=== PATIENT | female | born 1980 | race Caucasian/White ===

== ENCOUNTER 2017-02-02 11:47 | Outpatient (CLI) | payer OTHER ==
[~2017-02-02] VITALS: Ht 157.5 cm; Wt 57.8 kg
[2017-02-02] MEDS ORDERED: PRENAT PO (12:13)
[2017-02-02] MEDS ORDERED: CITRACAL PO (12:14)
[2017-02-02] MEDS ORDERED: FERR325C PO (12:14)
[2017-02-02] MEDS ORDERED: SYN75 PO (12:15)
[2017-02-02] MEDS ORDERED: RANI150T9 PO (12:18)
[2017-02-02 12:21] VITALS: Ht 157.5 cm; Wt 57.8 kg
[2017-02-02 12:22] VITALS: BP 109/60; PULSE 103; RESP 18
--- NOTE | 2017-02-02 13:21 | TRIAGE ---
OB Triage Datetime Report Generated by CPN: 02/02/2017 13:20 Datetime: 02/02/2017 12:33 Assessment Type: Admission Assessment Maternal Assessment Level of Consciousness: Fully Conscious DTR's/Clonus: DTRs 2+; No Clonus Headache: Denies Blurred Vision: No Respiratory Effort: Unlabored; Regular Rhythm; Equal Expansion Breath Sounds, Left: Clear and Equal Breath Sounds, Right: Clear and Equal Nausea/Vomiting: Denies RUQ Epigastric Pain: Denies Lower Extremities Edema: None Degree: None Upper Extremities Edema: None Degree: None Facial Edema: None Fall Risk Assessment History of Falling: (0) No Secondary Diagnosis: (0) No Ambulatory Aid: (0) Bedrest/Nurse Assist IV Therapy: (0) No Gait: (0) Normal/Bedrest/Immobile Mental Status: (0) Oriented to Own Ability Fall Score: 0 Fall Risk Score Definition: No Risk: No action required Datetime: 02/02/2017 12:32 EGA: 19.0 Time Provider Notified: 02/02/2017 13:00 Provider Notified: DR XAVIER Datetime: 02/02/2017 12:30 Labor Evaluation Frequency: 0 Pattern: Normal: <= 5 Contractions in 10 Minutes Resting Tone [place]: Relaxed Contraction Comments: NONE NOTED Datetime: 02/02/2017 12:28 Time of Arrival: 02/02/2017 11:30 Arrived By: Ambulatory Arrived From: Home Chief Complaint: HEADACHE, COUGH Movement: Present Contractions: Denies/Absent Rupture of Membranes: Denies Vaginal Bleeding: None Vaginal Discharge: Denies Recent Sexual Intercouse: Denies Abdominal Trauma: Not Applicable Patient Complaints: Other Time Provider Notified: 02/02/2017 13:00 Provider Notified: DR XAVIER Initial Plan: NST
== END 2017-02-02 13:41 | disposition home or self-care (01) ==
LOC: OBT 11:47 → L-D 11:47 → OBT 13:41
PROVIDERS: ATTEND Obstetrics & Gynecology
DX: O60.02 Preterm labor without delivery, second trimester (principal); O09.512 Supervision of elderly primigravida, second trimester; Z3A.19 19 weeks gestation of pregnancy
CPT/HCPCS: G0463

== ENCOUNTER 2017-06-23 09:26 | Inpatient (IN) | payer OTHER ==
[~2017-06-23] VITALS: Ht 160 cm; Wt 66.7 kg
[2017-06-23] VITALS (10 sets, daily range): BP systolic 97–116; BP diastolic 52–69; PULSE 75–104; RESP 17–19; Ht 160 cm; Wt 66.7 kg
[~2017-06-23 09:26] MED LIST: CITRACAL PO; DEXAMETHASONE 4 MG/ML 1 ML INJ ONE; FERR325C PO; PRENAT PO; RANI150T9 PO; SYN75 PO
[2017-06-23] MEDS: LACTATED RINGER'S 1,000 ML IV SCH ×2 (10:19→12:33)
[2017-06-23 10:26] LABS: BASOPHILS % 0.3 % (0.0-2.0); EOSINOPHILS # 0.1 10^3/ul (0.0-0.5); EOSINOPHILS % 1.9 % (0.0-7.0); HEMATOCRIT 36.1 % (37.0-47.0); HEMOGLOBIN 12.3 g/dl (12.0-16.0); LYMPHOCYTES # 1.3 10^3/ul (0.8-2.9); MEAN CORPUSCULAR HEMOGLOBIN 30.5 pg (29.0-33.0); MEAN CORPUSCULAR HGB CONC 34.1 g/dl (32.0-37.0); MEAN CORPUSCULAR VOLUME 89.6 fl (82.0-101.0); MEAN PLATELET VOLUME 11.9 fl (7.4-10.4); MONOCYTE # 0.5 10^3/ul (0.3-0.9); MONOCYTES % 6.5 % (0.0-11.0); NEUTROPHIL # 5.6 10^3/ul (1.6-7.5); NEUTROPHILS % 73.8 % (39.0-77.0); PLATELET COUNT 215 10^3/UL (140-415); RED BLOOD COUNT 4.03 10^6/ul (4.20-5.40); RED CELL DISTRIBUTION WIDTH 14.8 % (11.5-14.5); WHITE BLOOD COUNT 7.5 10^3/ul (4.8-10.8)
[2017-06-23] MEDS ORDERED: CEFAZOLIN 2 GM/50 ML (PMX) 50 ML IV SCH (10:30)
[2017-06-23] MEDS ORDERED: OXYTOCIN 30 UNITS/LR 500 ML IV PRN ×2 (10:30→19:00)
[2017-06-23] MEDS ORDERED: METHYLERGONOVINE 0.2 MG INJ IM PRN ×2 (10:30→19:00)
[2017-06-23] MEDS ORDERED: CARBOPROST 250 MCG INJ IM PRN ×2 (10:30→19:00)
[2017-06-23] MEDS ORDERED: OXYTOCIN 30 UNITS/LR 500 ML IV SCH (10:30)
[2017-06-23] MEDS ORDERED: MISOPROSTOL 200 MCG TAB PR PRN ×2 (10:30→19:00)
[2017-06-23 10:39] LABS: INR 0.89; PT RATIO 0.9
[2017-06-23] MEDS ORDERED: CITRIC ACID/NA CITRATE 30 ML CUP ONE (12:43)
[2017-06-23] MEDS ORDERED: OXYTOCIN 10 UNIT INJ ONE (12:52)
[2017-06-23] MEDS ORDERED: PHENYLephrine (100 MCG/ML) 5ML SYG ONE ×3 (12:52→13:36)
[2017-06-23] MEDS ORDERED: morphine SULFATE/PF (10 MG/10 ML) INJ ONE (12:52)
[2017-06-23] MEDS ORDERED: CITRIC ACID/NA CITRATE 30 ML CUP PO ONE (13:00)
[2017-06-23] MEDS ORDERED: METOCLOPRAMIDE 10 MG INJ ONE (13:09)
[2017-06-23] MEDS ORDERED: ONDANSETRON 4 MG INJ ONE (13:09)
[2017-06-23] MEDS ORDERED: DEXAMETHASONE 4 MG/ML 1 ML INJ ONE (13:10)
[2017-06-23] MEDS ORDERED: KETOROLAC 30 MG INJ ONE (13:10)
[2017-06-23] MEDS ORDERED: morphine 4 MG/ML VIAL IV PRN (14:00)
[2017-06-23] MEDS ORDERED: ACETAMINOPHEN 500 MG TAB PO PRN (14:00)
[2017-06-23] MEDS ORDERED: NALBUPHINE HCL (10 MG/1 ML) INJ IV PRN (14:00)
[2017-06-23] MEDS ORDERED: ONDANSETRON 4 MG INJ IV PRN (14:00)
[2017-06-23] MEDS ORDERED: HYDROmorphONE 1 MG/ML SYG IV PRN ×2 (14:00)
[2017-06-23] MEDS ORDERED: HYDROCODONE/APAP (5/325) TAB PO PRN ×3 (14:00→19:00)
[2017-06-23] MEDS ORDERED: morphine 2 MG INJ IV PRN (14:00)
[2017-06-23] MEDS ORDERED: NALOXONE (0.4 MG/ML) INJ IV PRN (14:00)
--- NOTE | 2017-06-23 14:08 | HP ---
Date/Time of Note Date/Time of Note DATE: 06/23/17 TIME: 13:58 OB - History Hx of Present Free Text/Dictation 37 years old white female 1 para 0 EDC June 29, 2017 admitted at 39 weeks and 1 day for elective primary requested by her possibly due to tocophobia She has been under the care of the [facility] and her was complicated with gestational diabetes diet-controlled hypothyroidism on Synthroid no other complication noted on patient records Chief Complaint: Elective section at 39 weeks and 1 day Estimated Due Date: Jun 29, 2017 : 1 Para: 0 Care: Good Care Ultrasounds: Normal mid trimester US Obstetrical Complications: Gestational Diabetes Medical Complications: Other (Hypothyroidism) Past Family/Social History * Past Medical, Surgical, Family and Obstetric Histories reviewed from chart. Rubella: immune RPR/VDRL: Negative GBS Status: Negative HBsAG: Negative OB Admission Exam Physical Exam HEENT: WNL Heart: Rhythm Normal Lungs: Clear, Equal Abdomen: WNL Extremities: Normal Reflexes: Normal Cervical Dilatation: None Heart Rate: 130's Accelerations: Accelerations Present Decelerations: No Decelerations Varibility: Moderate Contractions on Admission: None Last 72 hours Lab Results CBC & BMP 06/23/17 10:00 OB Assessment/Plan Reason for admission: other (37 years old white female 1 para 0 EDC June 29 admitted to the hospital with request for elective section possible due to tocophobia) Plan: Section JAZMIN XAVIER MD Jun 23, 2017 14:08
--- NOTE | 2017-06-23 14:17 | OPR ---
Operative Report Planned Procedure Free Text/Dictation 37 years white female 1 para 0 39 weeks request elective C- section delivery Procedure date Jun 23, 2017 Procedure(s) Primary Performed by: JAZMIN XAVIER MD Assisting provider: ANA GIVENS MD Anesthesiologist: WILEY FELIX MD Pre-procedure diagnosis 39 weeks request for elective primary section Anesthesia Type: spinal Procedure Description Under satisfactory spinal anesthesia, patient was prepped and draped and placed in a supine position, tilted to the left. Pfannenstiel incision was made , carried through the subcutaneous tissue. Bleeders brought under control with electrocautery. Fascia incised to the length of the incision. Rectus muscles from the fascia, divided midline. Peritoneum exposed, entered through a transverse incision. Exploration of abdomen revealed gravid uterus at term normal-appearing tubes and ovaries. Bladder flap was developed. Transverse incision was made in the lower segment of the uterus. Amniotic sac ruptured. [ Clear] amniotic fluid noted. Light baby girl was delivered from occiput transverse nasal oropharyngeal suction was performed. baby handed to the team for immediate attention. reported 8 and 9 patient received 20 units of Pitocin through IV infusion placenta delivered manually intact. Uterine cavity cleaned with wet sponge and drainage established. Uterus closed in 2 layers using [Monocryl #1] in continuous fashion. Peritoneal cavity irrigated with warm saline. Sponge, needle and instrument count reported to be correct. Abdominal peritoneum closed with [2-0 chromic catgut] continuously. Rectus muscle approximated with [few interrupted 2-0 chromic catgut. Fascia closed with [#1 PDS], subcutaneous tissue approximated with 3 interrupted 2-0 chromic catgut skin closed subcuticular 3-0 Monocryl. Estimated blood loss 600 mL. Urine bag contained 200 []mL of clear urine patient tolerated procedure well transferred to recovery room in good condition Post-Procedure Findings: Live baby girl 8 and 9 Specimen removed: No Complications: None Pt Condition post procedure: stable Disposition: other (Recovery room) Physician Certification I, the undersigned physician, hereby certify that I have discussed the procedure described in this consent form with this patient (or the patient's legal open claims representative), including: * The risk and benefits of the procedure; * Any adverse reactions that may reasonably be expected to occur; * Any alternative efficacious methods of treatment which may be medically viable ; * The potential problems that may occur during recuperation; * Potential for blood transfusion and associated risks/benefits; and * Any research or economic interest I may have regarding this treatment. I further certify that the patient/legally responsible person was encouraged to ask question and that all questions were answered. JAZMIN XAVIER MD Jun 23, 2017 14:17
[2017-06-23] MEDS: DIPHENHYDRAMINE 50 MG INJ IV PRN (16:15)
[2017-06-23] MEDS ORDERED: DIPHENHYDRAMINE 50 MG INJ IV PRN (17:30)
[2017-06-23] MEDS: OXYTOCIN 30 UNITS/LR 500 ML IV SCH ×2 (18:36→20:39)
[2017-06-23] MEDS ORDERED: LANOLIN 7 GM TUBE TOP PRN (19:00)
[2017-06-23] MEDS ORDERED: CEFAZOLIN 1 GM/50 ML (PMX) 50 ML IVPB SCH (19:00)
[2017-06-23] MEDS: SENNA/DOCUSATE NA (8.6MG/50MG) TAB PO SCH (20:39)
[2017-06-24 00:04] VITALS: BP 107/59; PULSE 86; RESP 18
[2017-06-24] MEDS: DIPHENHYDRAMINE 50 MG INJ IV PRN ×2 (01:07→13:29)
[2017-06-24] MEDS: KETOROLAC 30 MG INJ IV PRN ×3 (01:08→13:29)
[2017-06-24] MEDS: LACTATED RINGER'S 1,000 ML IV SCH ×2 (01:17→10:03)
--- NOTE | 2017-06-24 01:31 | OPPN ---
Date/Time of Note Date/Time of Note DATE: 06/24/17 TIME: 01:30 Post-Anesthesia Notes Post-Anesthesia Note Last documented vital signs Vital Signs Date Time Temp Pulse Resp B/P Pulse Ox O2 Delivery O2 Flow Rate FiO2 06/24/17 00:04 98.2 86 18 107/59 Room Air 06/23/17 16:30 96 Activity: WNL Respiratory function: WNL Cardiovascular function: WNL Mental status: Baseline Pain reasonably controlled: Yes Hydration appropriate: Yes Nausea/Vomiting absent: Yes WILEY FELIX MD Jun 24, 2017 01:30
[2017-06-24 04:00] VITALS: BP 89/52; PULSE 80; RESP 18
[2017-06-24] MEDS: LEVOTHYROXINE 75 MCG TAB PO SCH (05:34)
[2017-06-24] MEDS ORDERED: NALBUPHINE HCL (10 MG/1 ML) INJ IV PRN (06:00)
[2017-06-24 08:19] LABS: BASOPHILS % 0.3 % (0.0-2.0); EOSINOPHILS # 0.1 10^3/ul (0.0-0.5); EOSINOPHILS % 0.7 % (0.0-7.0); HEMATOCRIT 29.9 % (37.0-47.0); LYMPHOCYTES # 1.7 10^3/ul (0.8-2.9); LYMPHOCYTES % 15.8 % (15.0-51.0); MEAN CORPUSCULAR HEMOGLOBIN 30.4 pg (29.0-33.0); MEAN CORPUSCULAR HGB CONC 33.4 g/dl (32.0-37.0); MEAN CORPUSCULAR VOLUME 90.9 fl (82.0-101.0); MEAN PLATELET VOLUME 11.6 fl (7.4-10.4); MONOCYTE # 0.8 10^3/ul (0.3-0.9); MONOCYTES % 7.4 % (0.0-11.0); NEUTROPHILS % 75.4 % (39.0-77.0); PLATELET COUNT 172 10^3/UL (140-415); RED BLOOD COUNT 3.29 10^6/ul (4.20-5.40); RED CELL DISTRIBUTION WIDTH 14.8 % (11.5-14.5); WHITE BLOOD COUNT 10.6 10^3/ul (4.8-10.8)
[2017-06-24 08:30] VITALS: BP 99/58; PULSE 75; RESP 14
[2017-06-24] MEDS ORDERED: CELECOXIB 200 MG CAP PO SCH (09:00)
[2017-06-24] MEDS: SENNA/DOCUSATE NA (8.6MG/50MG) TAB PO SCH ×2 (10:03→23:59)
--- NOTE | 2017-06-24 12:20 | PN ---
Date/Time of Note Date/Time of Note DATE: 06/24/17 TIME: 12:19 OB Subjective Subjective Subjective Post day 1 Afebrile vital signs are stable Abdomen soft incision dry Bowel sounds present Lochia moderate Incision dry Ambulation recommended Laboratory Tests Test 06/24/17 07:58 White Blood Count 10.610^3/ul Red Blood Count 3.2910^6/ul Hemoglobin 10.0g/dl Hematocrit 29.9% Mean Corpuscular Volume 90.9fl Mean Corpuscular Hemoglobin 30.4pg Mean Corpuscular Hemoglobin Concent 33.4g/dl Red Cell Distribution Width 14.8% Platelet Count 90583^3/UL Mean Platelet Volume 11.6fl Neutrophils % 75.4% Lymphocytes % 15.8% Monocytes % 7.4% Eosinophils % 0.7% Basophils % 0.3% Nucleated Red Blood Cells % 0.0/100WBC Neutrophils # 8.010^3/ul Lymphocytes # 1.710^3/ul Monocytes # 0.810^3/ul Eosinophils # 0.110^3/ul Basophils # 0.010^3/ul Nucleated Red Blood Cells # 0.010^3/ul Current Medications Medications (Trade) Dose Ordered Sig/Mary Route PRN Reason Start Time Stop Time Status Last Admin Dose Admin Lactated Ringer's 1,000 ml @ 125 mls/hr Q8H IV 06/23/17 10:09 06/24/17 10:03 Cefazolin Sodium/ Dextrose 50 ml @ 100 mls/hr ONCE IV 06/23/17 10:30 06/23/17 18:41 DC Oxytocin/Lactated Ringer's 500 ml @ 125 mls/hr ONCE IV 06/23/17 10:30 06/23/17 18:41 DC 06/23/17 17:35 Oxytocin/Lactated Ringer's 500 ml @ 0 mls/hr ONCE PRN IV For Hemorrhage Management 06/23/17 10:30 06/23/17 18:41 DC Methylergonovine Maleate (Methergine) 0.2 mg ONCE PRN IM VAGINAL BLEEDING 06/23/17 10:30 06/23/17 18:41 DC Carboprost Tromethamine (Hemabate) 250 mcg ONCE PRN IM VAGINAL BLEEDING 06/23/17 10:30 06/23/17 18:41 DC Misoprostol (Cytotec) 1,000 mcg ONCE PRN CA VAGINAL BLEEDING 06/23/17 10:30 06/23/17 18:41 DC Citric Acid/ Sodium Citrate (Bicitra) 30 ml STK-MED ONCE .ROUTE 06/23/17 12:43 06/23/17 12:44 DC Citric Acid/ Sodium Citrate (Bicitra) 30 ml PRE-OP ONCE PO 06/23/17 13:00 06/23/17 13:01 DC 06/23/17 13:45 Morphine Sulfate (Duramorph) 10 mg STK-MED ONCE .ROUTE 06/23/17 12:52 06/23/17 12:53 DC Oxytocin (Oxytocin) 10 units STK-MED ONCE .ROUTE 06/23/17 12:52 06/23/17 12:53 DC Phenylephrine HCl (Charly-Synephrine Inj Syg) 500 mcg STK-MED ONCE .ROUTE 06/23/17 12:52 06/23/17 12:53 DC Ondansetron HCl (Zofran Inj) 4 mg STK-MED ONCE .ROUTE 06/23/17 13:09 06/23/17 13:10 DC Metoclopramide HCl (Reglan) 10 mg STK-MED ONCE .ROUTE 06/23/17 13:09 06/23/17 13:10 DC Ketorolac Tromethamine (Toradol) 30 mg STK-MED ONCE .ROUTE 06/23/17 13:10 06/23/17 13:11 DC Dexamethasone (Decadron) 4 mg STK-MED ONCE .ROUTE 06/23/17 13:10 06/23/17 13:11 DC Phenylephrine HCl (Charly-Synephrine Inj Syg) 500 mcg STK-MED ONCE .ROUTE 06/23/17 13:25 06/23/17 13:26 DC Phenylephrine HCl (Charly-Synephrine Inj Syg) 500 mcg STK-MED ONCE .ROUTE 06/23/17 13:36 06/23/17 13:37 DC Hydromorphone HCl (Dilaudid) 0.2 mg Q2H PRN IV PAIN LEVEL 1-5 06/23/17 14:00 06/23/17 18:41 DC Hydromorphone HCl (Dilaudid) 0.4 mg Q2H PRN IV PAIN LEVEL 6-10 06/23/17 14:00 06/23/17 18:41 DC Morphine Sulfate (morphine) 2 mg Q2H PRN IV PAIN LEVEL 1-5 06/23/17 14:00 Morphine Sulfate (morphine) 4 mg Q2H PRN IV PAIN LEVEL 6-10 06/23/17 14:00 Ketorolac Tromethamine (Toradol) 30 mg Q6H PRN IV PAIN LEVEL 6-10 06/23/17 14:00 06/26/17 13:59 06/24/17 07:18 Celecoxib (Celebrex) 200 mg DAILY PO 06/24/17 09:00 06/24/17 09:00 DC Acetaminophen (Tylenol Tab) 500 mg Q4H PRN PO PAIN LEVEL 1-3 06/23/17 14:00 06/23/17 18:41 DC Acetaminophen/ Hydrocodone Bitart ([place] (5/325)) 1 tab Q4H PRN PO PAIN LEVEL 4-6 06/23/17 14:00 06/23/17 18:41 DC Nalbuphine HCl (Nubain) 10 mg Q4H PRN IV PRURITUS 06/23/17 14:00 06/23/17 18:41 DC Ondansetron HCl (Zofran Inj) 4 mg Q6H PRN IV NAUSEA AND/OR VOMITING 06/23/17 14:00 Naloxone HCl (Narcan) 0.2 mg Q2M PRN IV FOR RESP RATE 8 OR LESS 06/23/17 14:00 Miscellaneous Information (* Miscellaneous Pharmacy Order) DURAMORPH: 0.2 MG SPI... GIVEN NEURAXIAL XX 06/23/17 14:00 06/23/17 18:41 DC Levothyroxine Sodium (Synthroid) 75 mcg DAILY@06 PO 06/24/17 06:00 06/24/17 05:34 Diphenhydramine HCl (Benadryl) 25 mg Q6H PRN IV ITCHING 06/23/17 16:30 06/24/17 01:07 Diphenhydramine HCl (Benadryl) 25 mg PACU ORDER PRN IV PRURITUS 06/23/17 17:30 06/23/17 18:41 DC Acetaminophen/ Hydrocodone Bitart ([place] (5/325)) 1 tab Q4H PRN PO PAIN LEVEL 4-6 06/23/17 19:00 Acetaminophen/ Hydrocodone Bitart ([place] (5/325)) 2 tab Q4H PRN PO PAIN LEVEL 7-10 06/23/17 19:00 Oxycodone/ Acetaminophen (Percocet (5/ 325)) 1 tab Q4H PRN PO PAIN LEVEL 4-6 06/23/17 19:00 Oxycodone/ Acetaminophen (Percocet (5/ 325)) 2 tab Q4H PRN PO PAIN LEVEL 7-10 06/23/17 19:00 Ibuprofen (Motrin) 600 mg Q6 PO 06/24/17 18:00 Simethicone (Mylicon) 160 mg Q8H PRN PO DISTENSION/GAS/BLOATING 06/23/17 19:00 Senna/Docusate Sodium (Senokot-S) 1 tab BID PO 06/23/17 21:00 06/24/17 10:03 Lanolin (Ewe-R-Ijrxad) 1 applic BEDSIDE MEDICATION PRN TOP BEDSIDE FOR AMAN TO NIPPLES 06/23/17 19:00 06/24/17 01:07 Diphtheria/ Tetanus/Acell Pertussis 0.5 ml 0.5 ml ONCE ONCE IM* 06/26/17 09:00 06/26/17 09:01 Oxytocin/Lactated Ringer's 500 ml @ 0 mls/hr ONCE PRN IV For Hemorrhage Management 06/23/17 19:00 Methylergonovine Maleate (Methergine) 0.2 mg ONCE PRN IM VAGINAL BLEEDING 06/23/17 19:00 Carboprost Tromethamine (Hemabate) 250 mcg ONCE PRN IM VAGINAL BLEEDING 06/23/17 19:00 Misoprostol 1000 mcg 1,000 mcg ONCE PRN CA VAGINAL BLEEDING 06/23/17 19:00 Cefazolin Sodium 50 ml @ 100 mls/hr ONCE IVPB 06/23/17 19:00 06/23/17 19:29 DC 06/23/17 20:39 Oxytocin/Lactated Ringer's 500 ml @ 125 mls/hr Q4H IV 06/23/17 18:36 06/23/17 20:39 Nalbuphine HCl (Nubain) 10 mg Q6H PRN IV PRURITUS 06/24/17 06:00 06/24/17 06:51 JAZMIN XAVIER MD Jun 24, 2017 12:20
[2017-06-24 12:45] VITALS: BP 106/61; PULSE 84; RESP 16
[2017-06-24 16:40] VITALS: BP 104/57; PULSE 80; RESP 16
[2017-06-24] MEDS: IBUPROFEN 600 MG TAB PO SCH ×2 (17:53→23:59)
[2017-06-24] MEDS: OXYCODONE/ACETAMINOPHEN (5/325) TAB PO PRN (18:49)
[2017-06-24 20:45] VITALS: BP 97/56; PULSE 110; RESP 18
[2017-06-25] MEDS: OXYCODONE/ACETAMINOPHEN (5/325) TAB PO PRN ×4 (00:01→21:14)
[2017-06-25 05:33] VITALS: BP 98/55; PULSE 85; RESP 19
[2017-06-25] MEDS: LEVOTHYROXINE 75 MCG TAB PO SCH (05:54)
[2017-06-25] MEDS: IBUPROFEN 600 MG TAB PO SCH ×4 (05:54→23:59)
[2017-06-25] MEDS: LACTATED RINGER'S 1,000 ML IV SCH (06:37)
[2017-06-25 07:30] VITALS: BP 102/52; PULSE 57; RESP 18
[2017-06-25] MEDS: SENNA/DOCUSATE NA (8.6MG/50MG) TAB PO SCH ×2 (09:09→21:13)
--- NOTE | 2017-06-25 10:58 | PN ---
Date/Time of Note Date/Time of Note DATE: 06/25/17 TIME: 10:57 OB Subjective Subjective Subjective Post day 2 Afebrile VSS Abdomen soft uterus firm incision dry bowel sounds present no bowel movement enema recommended extremities normal JAZMIN XAVIER MD Jun 25, 2017 10:58
[2017-06-25] MEDS ORDERED: NA PHOSPHATE/BIPHOS 133 ML ENEMA PR ONE (11:00)
[2017-06-25 16:37] VITALS: BP 104/66; PULSE 82; RESP 18
[2017-06-25 20:00] VITALS: BP 98/73; RESP 18
[2017-06-26 04:09] VITALS: BP 118/68; PULSE 74; RESP 18
[2017-06-26] MEDS: OXYCODONE/ACETAMINOPHEN (5/325) TAB PO PRN (05:13)
[2017-06-26] MEDS: LEVOTHYROXINE 75 MCG TAB PO SCH (05:13)
[2017-06-26] MEDS: IBUPROFEN 600 MG TAB PO SCH ×2 (05:13→12:17)
[2017-06-26 08:15] VITALS: BP 113/67; PULSE 87; RESP 18
--- NOTE | 2017-06-26 08:52 | PD.PPDC ---
SHUTDOWN COORDINATOR Discharge Instruction Condition Patient Condition: Good Diet Diet: Resume Regular Diet Activity/Restrictions Restrictions: No Exercising No Lifting No Driving No Sexual Activity Nothing in the Vagina No [place] No Tampons, douche Wound/Drain Care Instructions Wound/Drain Care Instructions: Remove Steri Strips in 1 week Follow-up Follow-up with Physician: 1, Week/Weeks Provider Information: Post instructions given recommended to make appointment with the office in 1 week Return to clinic for [facility]PECT[facility]OR Instructions: Fever greater than 101 Chills Worsening abdominal pain Excessive Vaginal Bleeding More than 2 pads per hour Unable to tolerate diet OB Instructions: Breast Tenderness Depression Blurried Vision Headache Surgical Instructions: Incisional Drainage Incisional Redness JAZMIN XAVIER MD Jun 26, 2017 08:52
--- NOTE | 2017-06-26 08:59 | DS ---
Date/Time of Note Date/Time of Note DATE: 06/26/17 TIME: 08:56 Discharge Summary Admission/Discharge Info Admit Date/Time Jun 23, 2017 at 09:26 Discharge Date/Time June 26, 2017 at 8:45 AM Discharge Diagnosis Post date 3 Patient Condition: Good Procedures Primary patient request Hx of Present Illness Term request for elective section Hospital Course Satisfactory uneventful Home Meds Reported Medications Ranitidine Hcl* (Zantac*) 150 Mg Tablet, 150 MG PO BID, #60 TAB 02/02/17 Levothyroxine Sodium* (Synthroid*) 75 Mcg Tablet, 75 MCG PO BEFORE BREAKFAST, # 30 TAB 02/02/17 Calcium Citrate* (Citracal*) 950 Mg Tab, 950 MG PO DAILY, TAB 02/02/17 Ferrous Sulfate (Iron) 325 Mg Capsule.er, 325 MG PO, CAP 02/02/17 Multivit/Min/Fol Ac/Iron/Pren* ( S*) 1 Tab Tab, 1 TAB PO DAILY, TAB 02/02/17 Follow-up Plan Post instructions given recommended to make appointment to be seen in the office in 1 week Primary Care Provider Not On Staff Doctor Time spent on discharge: < 30 minutes JAZMIN XAVIER MD Jun 26, 2017 08:59
[2017-06-26] MEDS ORDERED: DIPHTH/TET/ACEL PERTUSS (ADULT) 0.5 ML VIAL IM* ONE (09:00)
[2017-06-26] MEDS: SENNA/DOCUSATE NA (8.6MG/50MG) TAB PO SCH (09:00)
== END 2017-06-26 17:01 | disposition home or self-care (01) | DRG 766 ==
LOC: L-D 09:26 → PP1 18:01
PROVIDERS: ADMIT Obstetrics & Gynecology; ATTEND Obstetrics & Gynecology
PROC: 10D00Z1 Extraction of Products of Conception, Low, Open Approach (ICD-10-PCS; principal; 2017-06-23 12:30)
DX: O99.344 Other mental disorders complicating childbirth (principal); O24.420 Gestational diabetes mellitus in childbirth, diet controlled; E03.9 Hypothyroidism, unspecified; Z37.0 Single live birth; Z3A.39 39 weeks gestation of pregnancy; O99.283 Endocrine, nutritional and metabolic diseases complicating pregnancy, third trimester; F40.8 Other phobic anxiety disorders
CPT/HCPCS: 85025; 85610; 85730; 86592; 86850; 86900; 86901; 87340; 90715; 99464; J0690; J1100; J1200; J1885; J2274; J2300; J2370; J2405; J2590; J2765; J7120